=== PATIENT | male | born 1990 | race Caucasian/White ===

== ENCOUNTER 2017-05-24 14:38 | Emergency (ER) | payer BC ==
[2017-05-24] MEDS ORDERED: Ibuprofen TAB* 600 MG PO ONE (14:55)
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
--- NOTE | 2017-05-24 15:43 | RAD ---
Indication: RIGHT knee pain post fall. Comparison: None. Technique: RIGHT knee: AP, tunnel, crosstable lateral, sunrise views. Report: Soft tissue edema at the infrapatellar fat pad. No suprapatellar joint effusion, fracture, or malalignment. Unremarkable soft tissue contours. IMPRESSION: Soft tissue edema at the level of the infrapatellar fat pad. Negative for fracture.
--- NOTE | 2017-05-24 15:44 | RAD ---
INDICATION: LEFT fourth digit pain post fall. COMPARISON: No relevant prior exams available on the [facility] P[facility] for comparison. TECHNIQUE: AP, lateral, and oblique views LEFT hand. REPORT: Normal articular alignment. Negative for fracture. Unremarkable soft tissue contours. IMPRESSION: Negative exam.
[2017-05-24 16:10] VITALS: BP 148/90
== END 2017-05-24 15:00 | disposition home or self-care (01) ==
LOC: ED 14:38
DX: M25.561 Pain in right knee (principal)
CPT/HCPCS: 99282; A9270-GY